=== PATIENT | male | born 1990 | race African-American/Black ===

== ENCOUNTER 2019-05-01 20:04 | Inpatient (IN) | payer OTHER ==
[2019-05-01 22:18] VITALS: BMI 40.0
--- NOTE | 2019-05-02 01:57 | HP ---
CIWA Score Nausea/Vomitin-Mild Nausea/No Vomiting Muscle Tremors: 4-Moderate,w/Arms Extend Anxiety: 4-Mod. Anxious/Guarded Agitation: 4-Moderately Restless Paroxysmal Sweats: 2 Orientation: 0-Oriented Tacttile Disturbances: 0-None Auditory Disturbances: 0-None Visual Disturbances: 0-None Headache: 3-Moderate CIWA-Ar Total Score: 18 - Admission Criteria OASAS Guidelines: Admission for Medically Managed Detox: Requires at least one of the followin. CIWA greater than 12 2. Seizures within the past 24 hours 3. Delirium tremens within the past 24 hours 4. Hallucinations within the past 24 hours 5. Acute intervention needed for co occurring medical disorder 6. Acute intervention needed for co occurring psychiatric disorder 7. Severe withdrawal that cannot be handled at a lower level of care (continued vomiting, continued diarrhea, abnormal vital signs) requiring intravenous medication and/or fluids 8. Admission ROS [facility] Chief Complaint: Alcohol withdrawal symptoms Allergies/Adverse Reactions: Allergies Allergy/AdvReac Type Severity Reaction Status Date / Time No Known Allergies Allergy Verified 05/01/19 21:54 History of Present Illness: 28 years old male with a long history of alcohol dependence is seeking admission to detox. This is his first admission to [facility]. He reports that he is on parole and has medical history of Diabetes Type 2, hypertension and asthma. He denies suicidal ideation at this time. Exam Limitations: Physical Impairment - Ebola screening Have you traveled outside of the country in the last 21 days: No (N) Have you had contact with anyone from an Ebola affected area: No Do you have a fever: No - Review of Systems Constitutional: Chills, Loss of Appetite, Malaise, Changes in sleep EENT: reports: No Symptoms Reported Respiratory: reports: No Symptoms reported Cardiac: reports: No Symptoms Reported GI: reports: Nausea, Poor Appetite, Poor Fluid Intake, Vomiting, Abdominal cramping : reports: No Symptoms Reported Musculoskeletal: reports: Back Pain, Joint Pain, Muscle Weakness Integumentary: reports: Dryness, Flushing Neuro: reports: Tremors Endocrine: reports: No Symptoms Reported Hematology: reports: No Symptoms Reported Psychiatric: reports: Mood/Affect Appropiate, Orientated x3, Anxious, Depressed Other Systems: Reviewed and Negative Patient History - Patient Medical History Hx Anemia: No Hx Asthma: Yes (albuterol) Hx Chronic Obstructive Pulmonary Disease (COPD): No Hx Cancer: No Hx Cardiac Disorders: No Hx Congestive Heart Failure: No Hx Hypertension: Yes (clonidin ) Hx Hypercholesterolemia: No Hx Pacemaker: No HX Cerebrovascular Accident: No Hx Seizures: No Hx Dementia: No Hx Diabetes: Yes (Ype 2 on Metformin) Hx Gastrointestinal Disorders: No Hx Liver Disease: No Hx Genitourinary Disorders: No Hx Sexually Transmitted Disorders: No Hx Renal Disease (ESRD): No Hx Thyroid Disease: No Hx Human Immunodeficiency Virus (HIV): No Hx Hepatitis C: No Hx Depression: No Hx Suicide Attempt: No Hx Bipolar Disorder: No Hx Schizophrenia: No - Patient Surgical History Past Surgical History: No - PPD History Previous Implant?: Yes (PPD POITIVE) Implanted On Prior R Admission?: No - Reproductive History Patient is a Female of Child Bearing Age (11 -55 yrs old): No (male) - Smoking Cessation Smoking history: Former smoker Have you smoked in the past 12 months: No Hx Chewing Tobacco Use: No Initiated information on smoking cessation: No - Substance & Tx. History Hx Alcohol Use: Yes Substance Use Type: None, Heroin, Marijuana Hx Substance Use Treatment: No - Substances abused Heroin Substance route: Oral Frequency: 3-6 times per week Amount used: 5bags Age of first use: 19 Date of last use: 04/29/19 Alcohol Substance route: Oral Frequency: Daily Amount used: 6pack of 24 oz beers Age of first use: 13 Date of last use: 04/29/19 Admission Physical Exam BHS - Vital Signs Vital Signs: Vital Signs - 24 hr 05/01/19 22:13 Temperature 99.9 F H Pulse Rate 95 H Respiratory 18 Rate Blood Pressure 153/104 H - Physical General Appearance: Yes: Within Normal Limits, Moderate Distress HEENTM: Yes: Hearing grossly Normal, Normal ENT Inspection, Normocephalic Respiratory: Yes: Normal Breath Sounds, Decreased Breath Sounds, No Respiratory Distress Neck: Yes: Supple Breast: Yes: Breast Exam Deferred Cardiology: Yes: Tachycardia Abdominal: Yes: Normal Bowel Sounds Genitourinary: Yes: Within Normal Limits Back: Yes: Normal Inspection Musculoskeletal: Yes: Within Normal Limits Extremities: Yes: Normal Inspection Neurological: Yes: Fully Oriented, Motor Strength 5/5, Normal Mood/Affect Integumentary: Yes: Warm Lymphatic: Yes: Within Normal Limits - Diagnostic (1) Diabetes type 2, controlled Current Visit: Yes Status: Acute (2) Hypertension Current Visit: Yes Status: Chronic Qualifiers: Hypertension type: essential hypertension Qualified Code(s): I10 - Essential (primary) hypertension (3) Asthma Current Visit: Yes Status: Acute Qualifiers: Asthma severity: mild Asthma persistence: intermittent (4) DVT (deep venous thrombosis) Current Visit: Yes Status: Acute Qualifiers: Laterality: right Cleared for Admission BHS - Detox or Rehab [facility] Level of Care: Medically Managed Detox Regimen/Protocol: Librium Claeared for Rehab Admission: No Breathalyzer - Breathalyzer Breathalyzer: 0 Urine Drug Screen - Test Device Lot number: [id number] Expiration date: 01/08/21 - Control Is test valid?: Yes - Results Drug screen NEGATIVE: Yes Urine drug screen results: THC-Marijuana, MTD-Methadone, BUP-Suboxone Inpatient Rehab Admission - Rehab Decision to Admit Inpatient rehab admission?: No
[2019-05-02] MEDS ORDERED: ACETAMINOPHEN 325 MG TABLET (FP) PO PRN ×2 (02:07)
[2019-05-02] MEDS ORDERED: MAGNESIUM HYDROX 2400MG/30ML ORAL SUSPENSION 30 ML CUP PO PRN (02:07)
[2019-05-02] MEDS ORDERED: IBUPROFEN 400 MG TABLET (FP) PO PRN (02:07)
[2019-05-02] MEDS ORDERED: MAG HYDROX/AL HYDROX/SIMETH 30 ML UNIT-DOSE CUP PO PRN (02:07)
[2019-05-02] MEDS ORDERED: BISMUTH SUBSALICYLATE 524 MG/30 ML UD PO PRN (02:07)
[2019-05-02] MEDS ORDERED: MAGNESIUM CITRATE 300 ML BOTTLE PO PRN (02:07)
[2019-05-02] MEDS ORDERED: MENTHOL/PHENOL 1 EACH UD MM PRN (02:07)
[2019-05-02] MEDS ORDERED: chlordiazePOXIDE HCL 25 MG CAPSULE PO PRN (02:07)
[2019-05-02] MEDS ORDERED: hydrOXYzine PAMOATE 25 MG CAPSULE (FP) PO PRN (02:07)
[2019-05-02] MEDS ORDERED: MELATONIN 5 MG TABLETS PO PRN (02:07)
[2019-05-02] MEDS ORDERED: ALBUTEROL SO4 8 GM HFA INHALER IH PRN (02:15)
[2019-05-02] MEDS: chlordiazePOXIDE HCL 25 MG CAPSULE PO SCH ×2 (05:50→10:14)
[2019-05-02] MEDS: INSULIN SLIDING SCALE (NOVOLOG) 1 VIAL SQ SCH ×2 (07:09→11:03)
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
[2019-05-02] MEDS ORDERED: APIXABAN 5 MG PO SCH (10:00)
[2019-05-02] MEDS: PRENATAL VITAMINS W/ FOLIC ACID TABLET (FP) PO SCH (10:14)
[2019-05-02] MEDS: amLODIPine BESYLATE 10 MG TABLET (FP) PO SCH (10:14)
[2019-05-02] MEDS: hydrOXYzine PAMOATE 50 MG CAPSULE (FP) PO PRN (11:05)
[2019-05-02] MEDS: METHOCARBAMOL 500 MG TABLET PO PRN ×2 (11:05→22:31)
[2019-05-02] MEDS: APIXABAN 5 MG TABLET PO SCH ×2 (11:06→22:28)
--- NOTE | 2019-05-02 11:11 | PN ---
S CIWA - CIWA Score Nausea/Vomitin-No Nausea/No Vomiting Muscle Tremors: 3 Anxiety: 3 Agitation: 4-Moderately Restless Paroxysmal Sweats: 3 Orientation: 0-Oriented Tacttile Disturbances: 0-None Auditory Disturbances: 0-None Visual Disturbances: 0-None Headache: 0-None Present CIWA-Ar Total Score: 13 BHS Progress Note (SOAP) Subjective: anxiety sweats upset stomach interrupted sleep agitation I prefer to take valium instead of librium Objective: 05/02/19 11:10 Vital Signs Temperature 98.2 F 05/02/19 09:44 Pulse Rate 70 05/02/19 09:44 Respiratory Rate 20 05/02/19 09:44 Blood Pressure 142/100 05/02/19 09:44 O2 Sat by Pulse Oximetry (%) Laboratory Tests 05/02/19 05/02/19 05:47 11:02 POC Glucometer 115 134 rest of labs pending aaox3 ambulating no acute distress Assessment: 05/02/19 11:11 withdrawals Plan: librium d/c; ordered valium taper as per pt request increase fluids MOM/mylanta
--- NOTE | 2019-05-02 12:12 | EKG ---
Test Reason : Blood Pressure : / mmHG Vent. Rate : 068 BPM Atrial Rate : 068 BPM P-R Int : 188 ms QRS Dur : 100 ms QT Int : 424 ms P-R-T Axes : 057 081 034 degrees QTc Int : 450 ms NORMAL SINUS RHYTHM POSSIBLE LEFT ATRIAL ENLARGEMENT NONSPECIFIC T WAVE ABNORMALITY ABNORMAL ECG NO PREVIOUS ECGS AVAILABLE Confirmed by Sher Iraheta MD ([id number]) on 05/02/2019 12:11:53 PM Referred By: Melvi Rojas Confirmed By:Sher Iraheta MD
[2019-05-02] MEDS: diazePAM 5 MG TABLET PO SCH ×2 (14:35→22:27)
[2019-05-02] MEDS: diazePAM 5 MG TABLET PO PRN (19:19)
[2019-05-02] MEDS ORDERED: diphenhydrAMINE HCL 25 MG CAPSULE (FP) PO ONE (21:37)
[2019-05-02] MEDS: diphenhydrAMINE HCL 50 MG CAPSULE PO SCH (22:26)
[2019-05-02] MEDS: MIRTAZAPINE 15 MG TABLET (FP) PO SCH (22:27)
[2019-05-02] MEDS: QUEtiapine FUMARATE 300 MG TABLET PO SCH (22:27)
[2019-05-02] MEDS: THIAMINE HCL 100 MG TABLET (FP) PO SCH (22:28)
[2019-05-03] MEDS ORDERED: chlordiazePOXIDE HCL 25 MG CAPSULE PO SCH (05:00)
[2019-05-03] MEDS: diazePAM 5 MG TABLET PO SCH ×2 (06:09→13:06)
[2019-05-03] MEDS: hydrOXYzine PAMOATE 50 MG CAPSULE (FP) PO PRN ×3 (06:11→20:03)
[2019-05-03] MEDS: METHOCARBAMOL 500 MG TABLET PO PRN ×3 (06:11→22:13)
[2019-05-03] MEDS: INSULIN SLIDING SCALE (NOVOLOG) 1 VIAL SQ SCH ×3 (07:00→16:43)
[2019-05-03] MEDS: diazePAM 5 MG TABLET PO PRN ×3 (08:56→19:59)
[2019-05-03 09:46] LABS: HEMATOCRIT 41.5 % (35.4-49); HEMOGLOBIN 13.5 GM/dL (11.7-16.9); MCH 27.1 pg (25.7-33.7); MCHC 32.7 g/dl (32.0-35.9); MEAN CELL VOLUME 83.1 fl (80-96); MEAN PLT VOLUME 7.8 fl (7.5-11.1); PLATELET COUNT 267 K/MM3 (134-434); RBC 4.99 M/mm3 (4.00-5.60); RDW 17.1 % (11.9-15.9); WHITE BLOOD COUNT 7.5 K/mm3 (4.0-10.0)
[2019-05-03 10:21] LABS: ALBUMIN 3.4 g/dl (3.4-5.0); BILIRUBIN,TOTAL 0.2 mg/dL (0.2-1); BLOOD UREA NITROGEN 12.2 mg/dL (7-18); CALCIUM 8.7 mg/dL (8.5-10.1); CREATININE 0.9 mg/dL (0.55-1.3); POTASSIUM 3.4 mmol/L (3.5-5.1); TOT PROT 6.4 g/dl (6.4-8.2)
[2019-05-03] MEDS: PRENATAL VITAMINS W/ FOLIC ACID TABLET (FP) PO SCH (10:30)
[2019-05-03] MEDS: amLODIPine BESYLATE 10 MG TABLET (FP) PO SCH (10:31)
[2019-05-03] MEDS: APIXABAN 5 MG TABLET PO SCH ×2 (10:31→22:11)
[2019-05-03] MEDS: POTASSIUM CHLORIDE TABS 20 MEQ TABLET.ER (FP) PO SCH (11:03)
--- NOTE | 2019-05-03 11:08 | PN ---
S CIWA - CIWA Score Nausea/Vomitin-No Nausea/No Vomiting Muscle Tremors: 1-None Visible, but [place] Anxiety: 1-Mildly Anxious Agitation: 1-Slight > Activity Paroxysmal Sweats: 1-Minimal Palms Moist Orientation: 0-Oriented Tacttile Disturbances: 0-None Auditory Disturbances: 0-None Visual Disturbances: 0-None Headache: 0-None Present CIWA-Ar Total Score: 4 BHS Progress Note (SOAP) Subjective: I will like to leave early tomorrow morning I am feeling much better just a little anxious Objective: 05/03/19 11:07 Vital Signs Temperature 97.1 F L 05/03/19 09:14 Pulse Rate 69 05/03/19 09:14 Respiratory Rate 18 05/03/19 09:14 Blood Pressure 119/76 05/03/19 09:14 O2 Sat by Pulse Oximetry (%) Laboratory Tests 05/02/19 05/02/19 05/02/19 05:47 11:02 16:32 WBC RBC Hgb Hct MCV MCH MCHC RDW Plt Count MPV Sodium Potassium Chloride Carbon Dioxide Anion Gap BUN Creatinine Est GFR (CKD-EPI)AfAm Est GFR (CKD-EPI)NonAf POC Glucometer 115 134 98 Random Glucose Calcium Total Bilirubin AST ALT Alkaline Phosphatase Total Protein Albumin 05/03/19 05/03/19 05/03/19 06:07 08:15 08:15 WBC 7.5 RBC 4.99 Hgb 13.5 Hct 41.5 MCV 83.1 MCH 27.1 MCHC 32.7 RDW 17.1 H Plt Count 267 MPV 7.8 Sodium 139 Potassium 3.4 L Chloride 101 Carbon Dioxide 30 Anion Gap 8 BUN 12.2 Creatinine 0.9 Est GFR (CKD-EPI)AfAm 135.19 Est GFR (CKD-EPI)NonAf 116.64 POC Glucometer 178 Random Glucose 121 H Calcium 8.7 Total Bilirubin 0.2 AST 26 ALT 29 Alkaline Phosphatase 92 Total Protein 6.4 Albumin 3.4 05/03/19 10:39 WBC RBC Hgb Hct MCV MCH MCHC RDW Plt Count MPV Sodium Potassium Chloride Carbon Dioxide Anion Gap BUN Creatinine Est GFR (CKD-EPI)AfAm Est GFR (CKD-EPI)NonAf POC Glucometer 158 Random Glucose Calcium Total Bilirubin AST ALT Alkaline Phosphatase Total Protein Albumin labs noted low potassium; 3.4 aaox3 ambulating no acute distress Assessment: 10/23/19 11:07 mild withdrawal Plan: continue with revised detox regimen as per pt request increase fluids kdur 40meq x 2 doses d/c in am
[2019-05-03] MEDS ORDERED: diphenhydrAMINE HCL 25 MG CAPSULE (FP) PO ONE (20:20)
[2019-05-03] MEDS: THIAMINE HCL 100 MG TABLET (FP) PO SCH (22:11)
[2019-05-03] MEDS: diphenhydrAMINE HCL 50 MG CAPSULE PO SCH (22:11)
[2019-05-03] MEDS: MIRTAZAPINE 15 MG TABLET (FP) PO SCH (22:11)
[2019-05-03] MEDS: QUEtiapine FUMARATE 300 MG TABLET PO SCH (22:11)
[2019-05-04] MEDS ORDERED: chlordiazePOXIDE HCL 10 MG CAPSULE PO PRN
[2019-05-04] MEDS: hydrOXYzine PAMOATE 50 MG CAPSULE (FP) PO PRN (01:04)
[2019-05-04] MEDS: diazePAM 5 MG TABLET PO PRN ×2 (01:05→09:34)
[2019-05-04] MEDS ORDERED: chlordiazePOXIDE HCL 10 MG CAPSULE PO SCH (05:00)
[2019-05-04] MEDS ORDERED: diazePAM 5 MG TABLET PO SCH (06:00)
[2019-05-04] MEDS: METHOCARBAMOL 500 MG TABLET PO PRN (06:08)
--- NOTE | 2019-05-04 09:17 | DS ---
[facility] Detox Discharge Summary Admission Date: 05/02/19 Discharge Date: 05/04/19 - History Present History: Alcohol Dependence, Cannabis Dependence, Opioid Dependence - Physical Exam Results Vital Signs: Vital Signs Temperature 97.3 F L 05/03/19 22:00 Pulse Rate 88 05/03/19 22:00 Respiratory Rate 20 05/03/19 22:00 Blood Pressure 121/50 L 05/03/19 22:00 O2 Sat by Pulse Oximetry (%) Pertinent Admission Physical Exam Findings: pt arrived in withdrawals Vital Signs Temperature 97.3 F L 05/03/19 22:00 Pulse Rate 88 05/03/19 22:00 Respiratory Rate 20 05/03/19 22:00 Blood Pressure 121/50 L 05/03/19 22:00 O2 Sat by Pulse Oximetry (%) Laboratory Tests 05/02/19 05/02/19 05/02/19 05:47 11:02 16:32 WBC RBC Hgb Hct MCV MCH MCHC RDW Plt Count MPV Sodium Potassium Chloride Carbon Dioxide Anion Gap BUN Creatinine Est GFR (CKD-EPI)AfAm Est GFR (CKD-EPI)NonAf POC Glucometer 115 134 98 Random Glucose Calcium Total Bilirubin AST ALT Alkaline Phosphatase Total Protein Albumin RPR Titer 05/03/19 05/03/19 05/03/19 06:07 08:15 08:15 WBC 7.5 RBC 4.99 Hgb 13.5 Hct 41.5 MCV 83.1 MCH 27.1 MCHC 32.7 RDW 17.1 H Plt Count 267 MPV 7.8 Sodium 139 Potassium 3.4 L Chloride 101 Carbon Dioxide 30 Anion Gap 8 BUN 12.2 Creatinine 0.9 Est GFR (CKD-EPI)AfAm 135.19 Est GFR (CKD-EPI)NonAf 116.64 POC Glucometer 178 Random Glucose 121 H Calcium 8.7 Total Bilirubin 0.2 AST 26 ALT 29 Alkaline Phosphatase 92 Total Protein 6.4 Albumin 3.4 RPR Titer 05/03/19 05/03/19 05/03/19 08:15 10:39 16:28 WBC RBC Hgb Hct MCV MCH MCHC RDW Plt Count MPV Sodium Potassium Chloride Carbon Dioxide Anion Gap BUN Creatinine Est GFR (CKD-EPI)AfAm Est GFR (CKD-EPI)NonAf POC Glucometer 158 184 Random Glucose Calcium Total Bilirubin AST ALT Alkaline Phosphatase Total Protein Albumin RPR Titer Nonreactive 05/04/19 06:06 WBC RBC Hgb Hct MCV MCH MCHC RDW Plt Count MPV Sodium Potassium Chloride Carbon Dioxide Anion Gap BUN Creatinine Est GFR (CKD-EPI)AfAm Est GFR (CKD-EPI)NonAf POC Glucometer 147 Random Glucose Calcium Total Bilirubin AST ALT Alkaline Phosphatase Total Protein Albumin RPR Titer today pt is aaox3 ambulating no acute distress no s/s of withdrawals - Treatment Hospital Course: Detox Protocol Followed, Detoxed Safely, Responded well, Discharged Condition Good, Rehab Referral Accepted Patient has Accepted a Rehab Referral to: pt declined rehab; referral provided - Medication Discharge Medications: Ambulatory Orders Albuterol Sulfate Inhaler - [Ventolin HFA Inhaler -] 2 puff Q4H 05/01/19 Amlodipine Besylate [Norvasc -] 10 mg PO DAILY 05/01/19 Apixaban 5 mg PO BID 05/01/19 Diphenhydramine [Benadryl Capsule -] 200 mg PO HS 05/01/19 Folic Acid 1 mg PO DAILY 05/01/19 Hydroxyzine HCl 100 mg PO HS 05/01/19 Metformin HCl [Glucophage] 1,000 mg PO BID 05/01/19 Mirtazapine 15 mg PO HS 05/01/19 Quetiapine Fumarate [Seroquel -] 300 mg PO HS 05/01/19 Thiamine HCl [Vitamin B-1] 100 mg PO DAILY 05/01/19 - Diagnosis (1) Alcohol dependence with uncomplicated intoxication Current Visit: Yes Status: Chronic (2) Cannabis dependence Current Visit: Yes Status: Chronic (3) Opioid dependence, uncomplicated Current Visit: Yes Status: Chronic (4) Substance-induced anxiety disorder Current Visit: Yes Status: Acute (5) Substance-induced sleep disorder Current Visit: Yes Status: Acute (6) ADHD (attention deficit hyperactivity disorder) Current Visit: Yes Status: Chronic (7) Asthma Current Visit: Yes Status: Chronic Qualifiers: Asthma severity: mild Asthma persistence: intermittent (8) Diabetes type 2, controlled Current Visit: Yes Status: Chronic (9) Hypertension Current Visit: Yes Status: Chronic Qualifiers: Hypertension type: essential hypertension Qualified Code(s): I10 - Essential (primary) hypertension (10) Schizoaffective disorder Current Visit: Yes Status: Chronic (11) DVT (deep venous thrombosis) Current Visit: Yes Status: Resolved Qualifiers: Laterality: right (12) Bipolar disorder Current Visit: Yes Status: Ruled-out - AMA Did Patient Leave Against Medical Advice: No
[2019-05-04] MEDS: POTASSIUM CHLORIDE TABS 20 MEQ TABLET.ER (FP) PO SCH (09:32)
[2019-05-04] MEDS: PRENATAL VITAMINS W/ FOLIC ACID TABLET (FP) PO SCH (09:32)
[2019-05-04] MEDS: amLODIPine BESYLATE 10 MG TABLET (FP) PO SCH (09:32)
[2019-05-04] MEDS: APIXABAN 5 MG TABLET PO SCH (09:32)
[2019-05-04 09:42] VITALS: BP 134/78; PULSE 84; TEMP 97.5
[2019-05-05] MEDS ORDERED: chlordiazePOXIDE HCL 10 MG CAPSULE PO SCH (05:00)
[2019-05-05] MEDS ORDERED: diazePAM 5 MG TABLET PO ONE (06:00)
[2019-05-06] MEDS ORDERED: chlordiazePOXIDE HCL 10 MG CAPSULE PO ONE (05:00)
== END 2019-05-04 09:55 | disposition home or self-care (01) | DRG 773 ==
LOC: YASAS 20:04 → Y6N 05-02 01:51
PROVIDERS: ADMIT Neuromusculoskeletal Medicine & OMM; ATTEND Neuromusculoskeletal Medicine & OMM
PROC: HZ2ZZZZ Detoxification Services for Substance Abuse Treatment (ICD-10-PCS; principal; 2019-05-02)
DX: F10.230 Alcohol dependence with withdrawal, uncomplicated (principal); F11.20 Opioid dependence, uncomplicated; F12.20 Cannabis dependence, uncomplicated; F19.280 Other psychoactive substance dependence with psychoactive substance-induced anxiety disorder; F25.9 Schizoaffective disorder, unspecified; F90.9 Attention-deficit hyperactivity disorder, unspecified type; I10 Essential (primary) hypertension; J45.20 Mild intermittent asthma, uncomplicated; E11.9 Type 2 diabetes mellitus without complications; Z79.84 Long term (current) use of oral hypoglycemic drugs; Z86.718 Personal history of other venous thrombosis and embolism; Z79.01 Long term (current) use of anticoagulants
CPT/HCPCS: 36415; 80053; 82962; 85027; 86593; 93005; 93010

== ENCOUNTER 2021-01-14 16:23 | Inpatient (IN) | payer OTHER ==
[2021-01-14 21:14] VITALS: BMI 28.5
[2021-01-14] MEDS ORDERED: MAGNESIUM HYDROX 2400MG/30ML ORAL SUSPENSION 30 ML CUP PO PRN (21:46)
[2021-01-14] MEDS ORDERED: MAGNESIUM CITRATE 300 ML BOTTLE PO PRN (21:46)
[2021-01-14] MEDS ORDERED: MENTHOL/PHENOL 1 EACH UD MM PRN (21:46)
[2021-01-14] MEDS ORDERED: BISMUTH SUBSALICYLATE 524 MG/30 ML PO PRN (21:46)
[2021-01-14] MEDS ORDERED: MAG HYDROX/AL HYDROX/SIMETH 30 ML UNIT-DOSE CUP PO PRN (21:46)
[2021-01-14] MEDS ORDERED: ACETAMINOPHEN 325 MG TABLET (FP) PO PRN ×2 (21:46)
[2021-01-14] MEDS ORDERED: NICOTINE POLACRILEX 2 MG GUM BUC PRN (21:46)
[2021-01-14] MEDS ORDERED: ONDANSETRON *ODT* 4 MG TABLET SL PRN (21:46)
[2021-01-14] MEDS ORDERED: hydrOXYzine PAMOATE 25 MG CAPSULE (FP) PO PRN (21:46)
[2021-01-14] MEDS ORDERED: MELATONIN 5 MG TABLETS PO SCH (22:00)
[2021-01-14] MEDS ORDERED: THIAMINE HCL 100 MG TABLET (FP) PO SCH (22:00)
[2021-01-14] MEDS ORDERED: ALBUTEROL SO4 HFA INHALER IH PRN (22:53)
[2021-01-14] MEDS ORDERED: cloNIDine HCL 0.1 MG TABLET PO ONE (23:59)
[2021-01-15] MEDS: INSULIN SLIDING SCALE (NOVOLOG) 1 VIAL SQ SCH ×3 (00:28→11:39)
[2021-01-15] MEDS: METHOCARBAMOL 500 MG TABLET PO PRN ×2 (00:43→09:47)
[2021-01-15] MEDS: hydrOXYzine PAMOATE 25 MG CAPSULE (FP) PO PRN ×2 (00:43→09:47)
[2021-01-15] MEDS ORDERED: METHADONE HCL 10 MG TABLET PO ONE (08:56)
[2021-01-15] MEDS ORDERED: PRENATAL VITAMINS W/ FOLIC ACID TABLET (FP) PO SCH (10:00)
[2021-01-15] MEDS ORDERED: NICOTINE 21 MG/24 HOURS TOPICAL PATCH TD SCH (10:25)
[2021-01-15] MEDS ORDERED: diazePAM 5 MG TABLET PO ONE (10:58)
[2021-01-15 13:41] VITALS: BP 135/83; PULSE 86; TEMP 97.1
[2021-01-15] MEDS ORDERED: diazePAM 5 MG TABLET PO PRN (14:52)
[2021-01-16] MEDS ORDERED: METHADONE HCL 10 MG TABLET PO SCH (06:00)
[2021-01-16] MEDS ORDERED: NICOTINE 21 MG/24 HOURS TOPICAL PATCH TD SCH ×2 (10:00)
== END 2021-01-15 16:02 | disposition home or self-care (01) | DRG 773 ==
LOC: YASAS 16:23 → Y5N 22:16 → Y3N 22:51
PROVIDERS: ADMIT Allergy & Immunology; ATTEND Allergy & Immunology
PROC: HZ2ZZZZ Detoxification Services for Substance Abuse Treatment (ICD-10-PCS; principal; 2021-01-14)
DX: F10.20 Alcohol dependence, uncomplicated (principal); F11.20 Opioid dependence, uncomplicated; F14.20 Cocaine dependence, uncomplicated; F12.20 Cannabis dependence, uncomplicated; F17.210 Nicotine dependence, cigarettes, uncomplicated; I10 Essential (primary) hypertension; J45.20 Mild intermittent asthma, uncomplicated; Z79.4 Long term (current) use of insulin; Z79.84 Long term (current) use of oral hypoglycemic drugs; Z79.01 Long term (current) use of anticoagulants; Z86.718 Personal history of other venous thrombosis and embolism; Z86.69 Personal history of other diseases of the nervous system and sense organs
CPT/HCPCS: 82962; C9803; J0735; U0003; U0005